=== PATIENT | female | born 1970 | race Caucasian/White ===

== ENCOUNTER 2016-11-29 15:32 | Emergency (ER) | payer SELFPAY ==
[~2016-11-29] VITALS: Ht 157.5 cm; Wt 64.7 kg
[2016-11-29] MEDS ORDERED: MEDROL DOSEPAK4 MG PO (19:21)
[2016-11-29 19:24] VITALS: BP 122/82
== END 2016-11-29 19:24 | disposition home or self-care (01) ==
LOC: EME 15:32
DX: S86.912A Strain of unspecified muscle(s) and tendon(s) at lower leg level, left leg, initial encounter (principal); Z87.891 Personal history of nicotine dependence
CPT/HCPCS: 73552; 99281; 99284

== ENCOUNTER 2017-12-27 18:31 | Emergency (ER) | payer SELFPAY ==
[~2017-12-27] VITALS: Ht 157.5 cm; Wt 70.9 kg
[~2017-12-27 18:31] MED LIST: MEDROL DOSEPAK4 MG PO
[2017-12-27 18:41] VITALS: BP 152/90
[2017-12-27] MEDS ORDERED: PREDNISONE10 MG PO (18:51)
[2017-12-27] MEDS ORDERED: FLEXERIL10 MG PO (18:51)
== END 2017-12-27 19:28 | disposition home or self-care (01) ==
LOC: EME 18:31
DX: S46.911A Strain of unspecified muscle, fascia and tendon at shoulder and upper arm level, right arm, initial encounter (principal); M62.838 Other muscle spasm; X50.9XXA Other and unspecified overexertion or strenuous movements or postures, initial encounter; Z87.891 Personal history of nicotine dependence; Z88.5 Allergy status to narcotic agent; Z88.6 Allergy status to analgesic agent
CPT/HCPCS: 99281; 99283; J1100